=== PATIENT | female | born 1935 | race Caucasian/White ===

== ENCOUNTER → 2021-03-27 | Outpatient (CLI) | payer MEDICARE, OTHER ==
[~2021-03-27] MED LIST: EFFEXOR XR150 MG PO; NADOLOL20 MG PO
== END ==
LOC: CT 16:12
PROVIDERS: ATTEND Orthopaedic Surgery
DX: S32.810A Multiple fractures of pelvis with stable disruption of pelvic ring, initial encounter for closed fracture (principal)
CPT/HCPCS: 72192